=== PATIENT | female | born 1965 | race Caucasian/White ===

== ENCOUNTER 2024-02-16 12:51 | Emergency (ER) | payer MEDICAID ==
--- NOTE | 2024-02-16 14:55 | ED Physician Documentation ---
PD HPI SKIN - Stated complaint Stated Complaint: ALLERGIC RX - Chief complaint Chief Complaint: Allergic Rx - History obtained from History obtained from: Patient - History of Present Illness Timing - onset: Yesterday Timing - duration: Days (08/12) Timing - details: Abrupt onset, Still present Location: Face (she has marked redness, burning feeling and swelling in area of application of a new facial cream. Has put on benadruyl lotion and regular face cream without improvement. Still the saem today.), Neck Quality / character: Painful, Burning, Discolored, Swelling. No: Vesicular Improved by: No: Benadryl PD PAST MEDICAL HISTORY - Past Medical History Past Medical History: No Cardiovascular: None Respiratory: None Neuro: None Endocrine/Autoimmune: None GI: None FLOATMAN: None : None HEENT: None Psych: None Musculoskeletal: None Derm: None - Past Surgical History Past Surgical History: No - Present Medications Home Medications: Ambulatory Orders Medication Instructions Recorded Confirmed Betamethasone Dipropionate 1 applic TP BID #15 gm 02/16/24 Cetirizine [ZyrTEC] 10 mg PO BID #15 tablet 02/16/24 dexAMETHasone [Decadron] 4 mg PO DAILY #5 tablet 02/16/24 diphenhydrAMINE [Benadryl] 1 cap PO PRN PRN 02/16/24 02/16/24 - Allergies Allergies/Adverse Reactions: Allergies Allergy/AdvReac Type Severity Reaction Status Date / Time fentanyl Allergy Emesis Verified 02/16/24 13:34 - Social History Does the pt smoke?: No Smoking Status: Never smoker Does the pt drink ETOH?: No Does the pt have substance abuse?: No - Immunizations Immunizations are current?: Yes - POLST Patient has POLST: No PD ED PE NORMAL - Vitals Vital signs reviewed: Yes - General General: Alert and oriented X 3, Well developed/nourished - HEENT HEENT: Other (the face and anterior neck with notable swelling and redness without blsiters. Tender. Demarcates to siders of face and lower forehead c/w areas of application of cream. C/W contact dermatitis. No oral swelling nor general itching. ) Results - Vitals Vitals: Oxygen O2 Source Room air PD Medical Decision Making - ED course Complexity details: considered differential (contact dermatitis with redness/swelling demarcated to areas of cream appplication. No general symptoms. Has not abated wtih time. Can add steroids and oral meds, better topicals. ), d/w patient Departure - Departure Disposition: 01 Home, Self Care Clinical Impression: Chemical induced allergic contact dermatitis Condition: Stable Instructions: ED Dermatitis Contact Prescriptions: Betamethasone Dipropionate 1 applic TP BID #15 gm dexAMETHasone [Decadron] 4 mg PO DAILY #5 tablet Cetirizine [ZyrTEC] 10 mg PO BID #15 tablet Comments: You do have a pretty significant dermatitis reaction. We can go with some oral medication of steroids for 2 to 3 days and also topical steroids to release the highlight areas twice daily for the next few days until resolved. I would anticipate this getting better over a few days. It should be improved a fair amount even into tomorrow. Continue with some antihistamines such as cetirizine orally twice daily for the next few days to week and you can continue with topical Benadryl or such. Just if there is alcohol base in the delivery system of the ointment then it might be furthering some of the redness. Just look at the ingredient list. Otherwise cool towels can help as well. Recheck if not improving well/resolved over the next couple of days. Forms: PCP List Discharge Date/Time: 02/16/24 15:51
[2024-02-16] MEDS: CETIRIZINE 10 MG TABLET PO STA (15:44)
[2024-02-16] MEDS: dexAMETHasone 4 MG TABLET PO STA (15:44)
[2024-02-16] MEDS: BETAMETHASONE AUG 0.05% CREAM 15 GM TUBE TOP STA (15:47)
[2024-02-16 16:00] VITALS: BP 122/82; O2SAT 98
== END 2024-02-16 15:51 | disposition home or self-care (01) ==
LOC: ED 12:51
DX: L24.5 Irritant contact dermatitis due to other chemical products (principal)
CPT/HCPCS: 99283; A9270; J8540